=== PATIENT | female | born 1965 | race Caucasian/White ===

== ENCOUNTER 2017-02-15 17:56 | Emergency (ER) | payer MEDICAID ==
[~2017-02-15] VITALS: Ht 167.6 cm; Wt 61.6 kg
[~2017-02-15 17:56] MED LIST: ASPI1TAB31 PO; CYCL-259 PO; IBUP200T48 PO; MORP-52 PO; OXYC20TA2 PO
[2017-02-15 18:18] VITALS: BP 125/85
[2017-02-15] MEDS ORDERED: DIAZEPAM 5 MG TABLET ONE (18:47)
[2017-02-15] MEDS ORDERED: OXYcodone/APAP 5/325MG TABLET ONE (18:47)
[2017-02-15] MEDS ORDERED: DIAZEPAM 5 MG TABLET PO ONE (19:00)
[2017-02-15] MEDS ORDERED: OXYcodone/APAP 5/325MG TABLET PO ONE (19:00)
== END 2017-02-15 21:12 | disposition home or self-care (01) ==
LOC: ED 21:06
DX: S23.3XXA Sprain of ligaments of thoracic spine, initial encounter (principal); M54.12 Radiculopathy, cervical region; F41.9 Anxiety disorder, unspecified; G89.29 Other chronic pain; M54.2 Cervicalgia; Z90.49 Acquired absence of other specified parts of digestive tract; V49.49XA Driver injured in collision with other motor vehicles in traffic accident, initial encounter; Y93.89 Activity, other specified; Y92.488 Other paved roadways as the place of occurrence of the external cause; Y99.8 Other external cause status
CPT/HCPCS: 72072; 72125; 99284; J7512